=== PATIENT | male | born 1970 | race African-American/Black ===

== ENCOUNTER 2020-02-09 11:30 | Inpatient (IN) | payer MEDICAID, SELFPAY ==
[2020-02-09] VITALS (23 sets, daily range): BP systolic 134–188; BP diastolic 89–126; PULSE 71–98; RESP 18–39; TEMP 36.9–37.1; O2SAT 68–96
--- NOTE | ~2020-02-09 | US_ITS ---
EXAMINATION: US venous doppler [facility] DATE: 02/09/2020 18:02 INDICATION: Shortness of breath. Elevated d-dimer. TECHNIQUE: Grayscale ultrasound images without and with compression and Doppler ultrasound images of the bilateral lower extremity veins were obtained. COMPARISON: None. FINDINGS: The visualized portions of right common femoral vein, profunda (deep) femoral vein, femoral vein, pop liteal vein, posterior tibial veins, peroneal veins, gastrocnemius vein and greater saphenous vein ou tflow are patent. The visualized portions of left common femoral vein, profunda femoral vein, femoral vein, popliteal v ein, posterior tibial veins, peroneal veins, gastrocnemius vein and greater saphenous vein outflow ar e patent. IMPRESSION: 1. No deep venous thrombosis in either lower limb. Reviewed, dictated and finalized at location A.
--- NOTE | ~2020-02-09 | XR_ITS ---
EXAMINATION: XR chest 1V portable EXAM DATE: 02/14/2020 05:46 INDICATION: Pneumonia. COVID 19 TECHNIQUE: Portable AP frontal chest x-ray was obtained. Comparison is made to prior examination from 02/13/2020. FINDINGS: Again there is rather extensive bilateral acute airspace disease with air bronchograms, wit hout interval improvement. Could be acute lung injury given history provided. Cardiomediastinal silho uette is normal. There is no pneumothorax suspected. There are no pleural effusions. There are no oss eous abnormalities identified. IMPRESSION: Persistent extensive bilateral acute airspace disease. Reviewed, dictated and finalized at location A.
--- NOTE | ~2020-02-09 | XR_ITS ---
XR chest 1V portable 02/09/2020 11:51 Indication: Shortness of breath Procedure: AP portable chest Comparison: No prior studies for comparison. Findings: Cardiomegaly. Bilateral airspace disease is present with more focal consolidation in the le ft lower lobe. No pleural effusion or pneumothorax. Impression: 1: Bilateral airspace disease may reflect edema or pneumonia. 2: Cardiomegaly. Reviewed, dictated and finalized at location A. Impression: 1: Bilateral airspace disease may reflect edema or pneumonia. 2: Cardiomegaly.
--- NOTE | ~2020-02-09 | XR_ITS ---
EXAMINATION: XR chest 1V portable INDICATION: Pneumonia and shortness of breath TECHNIQUE: Portable AP chest at 1250 hours COMPARISON: 02/09/2020 FINDINGS: There is diffuse lung disease with interval worsening on the right. The heart size is aria l for technique. There is no pleural effusion or pneumothorax. IMPRESSION: 1. Diffuse lung disease with interval worsening on the right, consistent with worsening pneumonia. Reviewed, dictated and finalized at location A. IMPRESSION: 1. Diffuse lung disease with interval worsening on the right, consistent with w orsening pneumonia.
--- NOTE | ~2020-02-09 | XR_ITS ---
EXAMINATION: XR abdomen NG/feed tube insert EXAM DATE: 02/15/2020 06:28 INDICATION: Orogastric tube placement. TECHNIQUE: Frontal projection(s) of the abdomen for interpretation. There is no prior study for mauricio parry. FINDINGS: Feeding tube is in position. There is nonobstructive upper abdominal bowel gas pattern. Ba silar groundglass density airspace disease with air bronchograms. IMPRESSION: Feeding tube in position. Reviewed, dictated and finalized at location A. IMPRESSION: Feeding tube in position.
--- NOTE | ~2020-02-09 | XR_ITS ---
EXAMINATION: XR chest ET placement EXAM DATE: 02/15/2020 06:26 INDICATION: Intubated. Respiratory failure. COVID 19. TECHNIQUE: Portable AP frontal chest x-ray was obtained. Comparison is made to prior examination from 02/14/2020. FINDINGS: Endotracheal tube tip is 6-7 centimeters above the anselmo (ideal range is between 2 to 5 cm ). Could be safely advanced 2 cm. There is a left subclavian line. There is a nasogastric tube seen with tip collimated off the study, but below the left hemidiaphragm. Extensive bilateral groundglass density airspace disease with some faint air bronchograms identified. There are no sizable pleural effusions. There is no pneumothorax suspected. The cardiomediastin al silhouette is prominent but magnified on this AP technique. The bones and soft tissues are unrem arkable. There is no significant interval change compared to prior exam. IMPRESSION: 1. Endotracheal tube could be safely advanced 2 cm. 2. Stable airspace disease and other findings as above. Vision radiologist phoned, discussed this case with clinician as per documentation in their report, w francisca was faxed and scanned into PACS with this exam. Reviewed, dictated and finalized at location A. IMPRESSION: 1. Endotracheal tube could be safely advanced 2 cm. 2. Stable airspace disease and other findings as above. Vision radiologist phoned, discussed this case with clinician as per documentat ion in their report, which was faxed and scanned into PACS with this exam.
--- NOTE | ~2020-02-09 | XR_ITS ---
EXAMINATION: XR chest ET placement EXAM DATE: 02/15/2020 10:27 INDICATION: Endotracheal tube placement. TECHNIQUE: Portable AP frontal chest x-ray was obtained. Comparison is made to prior examination from earlier same date. FINDINGS: Endotracheal tube tip is 7 centimeters above the anselmo (ideal range is between 2 to 5 cm). Could be safely advanced 3 cm. There is a left subclavian line. There is a nasogastric tube seen wi th tip and side-port overlying left upper quadrant, adequate. Extensive bilateral groundglass density airspace disease with some faint air bronchograms identified. There are no sizable pleural effusions. There is no pneumothorax suspected. The cardiomediastin al silhouette is prominent but magnified on this AP technique. The bones and soft tissues are unrem arkable. There is no significant interval change compared to prior exam. IMPRESSION: 1. Endotracheal tube could be safely advanced 3 cm. 2. Stable airspace disease and other findings as above. Reviewed, dictated and finalized at location A.
--- NOTE | ~2020-02-09 | XR_ITS ---
EXAMINATION: XR chest 1V portable DATE: 02/12/2020 05:45 INDICATION: COVID-19 pneumonia. TECHNIQUE: A single frontal view of the chest was obtained. COMPARISON: Chest single view 02/11/2020, chest CT 02/09/2020 FINDINGS: Again seen is elevation of right hemidiaphragm. There are hazy airspace opacities throughou t the lungs bilaterally. No pleural effusion or pneumothorax. The heart size is normal. IMPRESSION: 1. Diffuse lung disease with worsening in the upper lobes, consistent with pneumonia versus pulmonary edema. Reviewed, dictated and finalized at location A. IMPRESSION: 1. Diffuse lung disease with worsening in the upper lobes, consistent with pneu monia versus pulmonary edema.
--- NOTE | ~2020-02-09 | XR_ITS ---
EXAMINATION: XR chest 1V portable DATE: 02/13/2020 05:48 INDICATION: COVID-19 pneumonia. TECHNIQUE: A single frontal view of the chest was obtained. COMPARISON: Chest single view 02/12/2020 FINDINGS: There are hazy airspace opacities in all lung zones bilaterally. No pleural effusion or pne umothorax. The heart size is normal. IMPRESSION: 1. Stable diffuse lung disease, consistent with pneumonia versus pulmonary edema. Reviewed, dictated and finalized at location A. IMPRESSION: 1. Stable diffuse lung disease, consistent with pneumonia versus pulmonary patrick a.
--- NOTE | ~2020-02-09 | CT_ITS ---
EXAMINATION: CTA chest PE protocol DATE: 02/09/2020 18:13 INDICATION: Pneumonia. Hypoxia. Elevated d-dimer. TECHNIQUE: Computed tomography (CT) pulmonary angiogram of the chest was performed with 100 mL Omnipa que-350 intravenous contrast. Additional 3D reconstructions utilizing coronal maximum intensity proje ction (MIP) were performed. Automated exposure control and iterative reconstruction technique were em ployed. The dose-length product was 554.84 mGy-cm. COMPARISON: None FINDINGS: Excellent contrast opacification of the pulmonary arteries. There is mild streak artifact from dense contrast in the superior vena cava and right atrium. Minimal scattered respiratory motion artifact wh ich does not significantly limit evaluation. No pulmonary embolism. Groundglass opacities throughout both lungs, in places with centrilobular predominance and in other regions more confluent without ass ociated septal line thickening and would favor pneumonia over pulmonary edema. No pleural effusion. H eart size is normal. No pericardial effusion. Thoracic aorta is normal in caliber with no dissection. Mild likely reactive subcarinal lymphadenopathy. Visualized upper abdomen is unremarkable. Bones are unremarkable. IMPRESSION: 1. No pulmonary embolism. 2. Extensive bilateral pulmonary groundglass opacities concerning for pneumonia. Reviewed, dictated and finalized at location A. IMPRESSION: 1. No pulmonary embolism. 2. Extensive bilateral pulmonary groundglass opacities concerning for pneumonia .
--- NOTE | 2020-02-09 11:41 | ECG_ITS ---
Measurements Intervals [place] Rate: 98 P: 48 ME: 142 QRS: -5 QRSD: 87 T: 16 QT: 367 QTc: 470 Interpretive Statements SINUS RHYTHM VOLTAGE CRITERIA FOR LVH DELAYED PRECORDIAL R/S TRANSITION BORDERLINE T WAVE ABNORMALITY- INFERIOR LEADS BASELINE ARTIFACT- I, III, AVL, V2, V5 BORDERLINE ECG Electronically Signed On 02-09-2020 11:46:29 CDT by Sam Ray D.O.
[2020-02-09] MEDS: ONDANSETRON INJ 4 MG/2 ML VIAL (11:49)
--- NOTE | 2020-02-09 11:55 | ED.SOB ---
HPI - SOB/Dyspnea General Chief Complaint: Shortness of Breath/Dyspnea Stated Complaint: SOB History of Present Illness HPI Narrative: Cough, congestion, and SOB for about the past week. Fevers and more severe SOB today. Seen at urgent care prior to the ED and found to be febrile with O2 saturation of 80% on RA. In the low 90s on 15 L by NRB. No chest pain. He has no known medical history. He does not smoke. Related Data Allergies Allergy/AdvReac Type Severity Reaction Status Date / Time No Known Allergies Allergy Verified 02/09/20 11:48 Review of Systems Review of Systems: All systems reviewed & are unremarkable except as noted in HPI and below Constitutional: Constitutional: Reports fatigue and Reports fever(s) Eyes: Eyes: Denies no additional eye complaints ENT: Reports nasal congestion Cardiovascular: Cardiovascular: Denies chest pain Respiratory: Respiratory: Reports chest congestion, Reports cough and Reports dyspnea Gastrointestinal: Gastrointestinal: Denies nausea and Denies vomiting Genitourinary: Genitourinary: Denies dysuria Musculoskeletal: Musculoskeletal: Denies back pain Neurologic: Denies dizziness and Denies weakness PMFSH Social History Social History (Updated 02/09/20 @ 12:00 by Zheng Wellington MD) Smoking status: Never smoker Gender identity (if verbalized by the patient): Male Exam Const: General: alert and ill appearing acutely Nutritional Appearance: well nourished Orientation/consciousness: patient oriented x3 Other: Moderate distress HENMT: Other: NRB in place Resp: Effort & Inspection: tachypneic Auscultation: rhonchi Cardio: Rate: regular rate Rhythm: regular rhythm GI: GI Palp: Yes Soft to palpation and No Tenderness to palpation present (GI) Skin: General skin exam: normal color Extrem: General: normal to inspection Course Vital Signs Vital signs: Vital Signs Temperature 36.9 C 02/09/20 11:33 Pulse Rate 98 02/09/20 11:33 Respiratory Rate 27 H 02/09/20 11:33 Blood Pressure 146/104 H 02/09/20 11:33 Pulse Oximetry 84 L 02/09/20 11:33 Temperature 36.9 C 02/09/20 11:33 Pulse Rate 92 02/09/20 14:04 Respiratory Rate 38 H 02/09/20 14:04 Blood Pressure 142/97 H 02/09/20 14:01 Pulse Oximetry 84 L 02/09/20 14:04 MDM - SOB/Dyspnea MDM Narrative Medical decision making narrative: He has a history, labs and imaging highly concerning for COVID-19 infection. Case discussed with Dr. Saldana. He recommends continuing high flow nasal cannula and admission to the ICU as an IMU patient. He will see him if his condition worsens. Differential Diagnosis Differential diagnosis: Likely congestive heart failure, community acquired pneumonia, pulmonary embolism and other (COVID-19) Medical Records Attestation: I reviewed the patient's medical records. Lab Data Attestation: I reviewed the patient's lab results. Result diagrams: 02/09/20 11:43 02/09/20 11:43 Labs: Lab Results 02/09/20 02/09/20 02/09/20 Range/Units 11:43 11:43 11:43 WBC 13.9 H (4.5-10.0) K/mm3 RBC 5.34 (4.6-6.20) M/mm3 Hgb 14.9 (14.0-18.0) g/dL Hct 44.5 (42.0-52.0) % MCV 83.3 (80-100) fl MCH 27.9 (26-34) pg MCHC 33.5 (32-36) g/dl RDW 12.7 (11.5-14.5) % Plt Count 253 (150-375) k/mm3 MPV 10.5 H (7.4-10.4) fl Immature Gran % (Auto) 1.2 H (0-0.5) % Neut % (Auto) 89.3 H (45.5-73.1) % Lymph % (Auto) 5.5 L (18.3-44.2) % Milam % (Auto) 3.9 (2.6-8.5) % Eos % (Auto) 0.0 (0-4.4) % Baso % (Auto) 0.1 L (0.2-1.2) % Lymph # (Auto) 0.77 L (0.9-3.2) K/mm3 Milam # (Auto) 0.5 (0.1-0.6) K/mm3 Eos # (Auto) 0.0 (0-0.3) K/mm3 Baso # (Auto) 0.0 (0.0-0.1) K/mm3 Abs Immat Gran (auto) 0.17 H (0.00-0.031) K/mm3 Absolute Neuts (auto) 12.4 H (1.3-6.7) K/mm3 Absolute Nucleated RBC 0.0 (0.0-0.012) K/mm3 Nucleated RBC % 0.0 (0.0-0.2) % PT 12.7
[2020-02-09 11:59] LABS: Basophils Percent Auto 0.1 % (0.2-1.2); Hematocrit 44.5 % (42.0-52.0); Hemoglobin 14.9 g/dL (14.0-18.0); Immature Granulocyte Absolute 0.17 K/mm3 (0.00-0.031); Immature Granulocyte Percent A 1.2 % (0-0.5); Lymphocytes Absolute Auto 0.77 K/mm3 (0.9-3.2); Lymphocytes Percent Auto 5.5 % (18.3-44.2); Mean Corpuscular HGB Conc 33.5 g/dl (32-36); Mean Corpuscular Hemoglobin 27.9 pg (26-34); Mean Corpuscular Volume 83.3 fl (80-100); Mean Platelet Volume 10.5 fl (7.4-10.4); Monocytes Absolute Auto 0.5 K/mm3 (0.1-0.6); Monocytes Percent Auto 3.9 % (2.6-8.5); Neutrophils Absolute Auto 12.4 K/mm3 (1.3-6.7); Neutrophils Percent Auto 89.3 % (45.5-73.1); Platelet Count Result 253 k/mm3 (150-375); Red Blood Count 5.34 M/mm3 (4.6-6.20); Red Cell Distribution Width 12.7 % (11.5-14.5); White Blood Count 13.9 K/mm3 (4.5-10.0)
[2020-02-09 12:01] LABS: Alveolar/Arterial O2 Gradient 607.5 mmHg; Base Excess ABG 0.1 mEq/l (+/-2.0); Fractional Inspired Oxygen 100 %; HCO3 ABG 22.9 mEq/l (22.0-26.0); Oxygen Content ABG 20.5 %vol (16.0-22.0); Oxygen Saturation ABG 95.7 % (95.0-100.0); Oxyhemoglobin 93.5 % THb (90.0-100.0); PCO2 ABG 32.2 mmHg (35.0-45.0); PO2 ABG 73.3 mmHg (80.0-100.0); PO2 FiO2 Ratio Arterial Blood 0.73 %; Total Hemoglobin 15.6 g/dL (12.0-18.0); pH ABG 7.469 (7.350-7.450)
[2020-02-09 12:02] LABS: Device NON-REBREATHER MASK; Site Drawn RIGHT BRACHIAL
[2020-02-09 12:11] LABS: Lactic Acid Reflex 2.2 mmol/L (0.7-2.1)
[2020-02-09 12:12] LABS: Prothrombin Time 12.7 Seconds (11.1-14.7)
[2020-02-09 12:15] LABS: Alanine Aminotransferase 44 U/L (4-50); Albumin Level 3.9 g/dL (3.5-5.1); Alkaline Phosphatase 71 U/L (38-126); Aspartate Amino Transferase 54 U/L (17-59); Bilirubin,Total 0.9 mg/dL (0.2-1.3); Blood Urea Nitrogen 19 mg/dL (9-20); Calcium 8.3 mg/dL (8.4-10.2); Carbon Dioxide 25 mmol/L (22-30); Chloride 107 mmol/L (98-107); Estimated CRCL calculation 93 ml/min; Estimated Glomerular Filt Rate > 60; Glucose 127 mg/dL (75-110); Potassium 3.6 mmol/L (3.4-5.0); Sodium 139 mmol/L (137-145)
[2020-02-09 12:16] LABS: D Dimer 0.86 ug/mL (<0.48)
[2020-02-09 12:31] LABS: NT Pro B Type Natriuretic Pept 504 PG/ML (5-100); Troponin I 0.026 ng/mL (0.000-0.034)
[2020-02-09 12:32] LABS: CRP 16.7 mg/dL (<1.0)
--- NOTE | 2020-02-09 13:20 | PC.NURSE ---
Pt states he does not feel as though his breathing has gotten any more difficult since switching to high flow nasal canula. Pt resting with eyes closed.
[2020-02-09] MEDS: ALBUTEROL SULFATE (*SP) AEROSOL 1 PUFF 2 PUFF INHALATION (13:35)
[2020-02-09 14:32] LABS: Lactate Dehydrogenase 1174 U/L (313-618)
[2020-02-09 14:56] LABS: Reflex Lactic Acid Yes or No Add Lactic
--- NOTE | 2020-02-09 15:51 | ADMGEN ---
This patient, Josette Nguyen, was admitted to Intensive Care Unit-5. Patient/family oriented to hospital policies and general routines including ID bracelet, bed and alarms, visiting hours, pain management, procedures, bathroom and other care routines, personal items, smoking policy, room service/diet, and visiting hours. Valuables list has been completed. Information on how to activate the Rapid Response Team has been discussed. Patient/Family are encouraged to report perceived risks to care and to ask questions if they do not understand what they are told or what they should do.
--- NOTE | 2020-02-09 15:54 | PM.IMHP ---
H&P: HPI History of Present Illness Chief complaint: Acute respiratory failure with hypoxia/pneumonia Narrative: Josette Nguyen is a 49 year old male has no past medical history. The patient stated that a week ago he started to feel like he had the flu. The patient stated that he did have some chills but did not check his temperature he did not think that had a fever. He had a some nausea as well. He took some Tamiflu but that really did seem to help. 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 The patient states that he typically wears a mask when he picks sees people up. His fiancee is a nurse. Patient has had cough congestion and shortness of breath for the last week. The patient went to urgent care prior to the emergency room and was found to be afebrile with oxygen level of 80% on room air. Patient also had loss of appetite. Patient does not smoke or have any past medical history. The patient was tested for covid 19. He was placed on high-flow oxygen at 10 L per nasal cannula and satting in the lower 90s. Patient was positive for influenza a and B. his white count is up to 13.9. D-dimer was noted to be 0.86. LDH 1174. C reactive protein 16.7. BNP is 504. Was read as BiPAP bilateral airspace disease may reflect edema or pneumonia. Cardiomegaly. Patient was started on aZithromax and Rocephin. He was given a 1 time dose of albuterol HFA. Review of Systems Review of Systems: All systems reviewed & are unremarkable except as noted in HPI and below Constitutional: Constitutional: Reports as per HPI and Reports no additional constitutional complaints Eyes: Eyes: Reports as per HPI and Reports no additional eye complaints ENT: Reports system reviewed and no additional complaints, except as documented and Reports Normal hearing present Cardiovascular: Cardiovascular: Reports no additional cardiovascular complaints Respiratory: Respiratory: Reports no additional respiratory complaints and Reports no additional respiratory complaints Gastrointestinal: Gastrointestinal: Reports as per HPI and Reports no additional gastrointestinal complaints Musculoskeletal: Musculoskeletal: Reports no additional musculoskeletal complaints Integumentary/Breasts: Skin/Breast: Reports system reviewed and no additional complaints, except as docu and Reports as per HPI Neurologic: Reports system reviewed and no additional complaints, except as documented, Reports as per HPI and Reports Normal hearing present Psychiatric: Psychiatric: Reports no additional psychiatric complaints and Reports as per HPI Endocrine: Endocrine: Reports no additional endocrine complaints Hematologic/Lymphatic: Hematologic/Lymphatic: Reports no additional hematologic/lymphatic complaints Allergic/Immunologic: Allergic/Immunologic: Reports no additional allergic/immunologic complaints [facility] Past Medical History Medical History (Updated 02/09/20 @ 16:15 by Reina Valverde NP) No significant medical problems Surgical History Surgical History (Updated 02/09/20 @ 16:05 by Reina Valverde NP) H/O arthroscopic knee surgery Right knee Family History Family History (Updated 02/09/20 @ 16:05 by Reina Valverde NP) Father Hypertension Social History Social History (Updated 02/09/20 @ 16:09 by Reina Valverde NP) Social History: Patient works for [employer]. He has a fiancee. He has 3 children. He is a lifelong nonsmoker. Smoking status: Never smoker Second hand tobacco smoke exposure: No Alcohol intake: never Substance use: never Occupation/Education: occupation Gender identity (if verbalized by the patient): Male Spiritual care concerns: No Agree to blood products: Yes Meds Home Medications and Allergies Allergies Allergy/AdvReac Type Severity Reaction Status Date / Time No Known Allergies Allergy Verified 02/09/20 11:48 Vital Signs Vital Signs - 24 hr
[2020-02-09 19:02] LABS: Lactic Acid 1.6 mmol/L (0.7-2.1)
[2020-02-09] MEDS: hydrALAZINE HCL 20 MG/ML VIAL 10 MG IV PUSH (21:28)
[2020-02-10] VITALS (16 sets, daily range): BP systolic 103–151; BP diastolic 54–102; PULSE 64–83; RESP 20–41; TEMP 36.8–37.8; O2SAT 88–100
[2020-02-10 04:56] LABS: Basophils Percent Auto 0.1 % (0.2-1.2); Hematocrit 42.4 % (42.0-52.0); Hemoglobin 14.2 g/dL (14.0-18.0); Immature Granulocyte Percent A 0.9 % (0-0.5); Lymphocytes Absolute Auto 1.28 K/mm3 (0.9-3.2); Mean Corpuscular HGB Conc 33.5 g/dl (32-36); Mean Corpuscular Hemoglobin 27.8 pg (26-34); Mean Corpuscular Volume 83.1 fl (80-100); Mean Platelet Volume 9.9 fl (7.4-10.4); Monocytes Absolute Auto 0.6 K/mm3 (0.1-0.6); Monocytes Percent Auto 5.5 % (2.6-8.5); Neutrophils Absolute Auto 8.7 K/mm3 (1.3-6.7); Neutrophils Percent Auto 81.5 % (45.5-73.1); Platelet Count Result 262 k/mm3 (150-375); Red Cell Distribution Width 13.1 % (11.5-14.5); White Blood Count 10.7 K/mm3 (4.5-10.0)
[2020-02-10 05:14] LABS: Alanine Aminotransferase 49 U/L (4-50); Albumin Level 3.4 g/dL (3.5-5.1); Alkaline Phosphatase 61 U/L (38-126); Aspartate Amino Transferase 52 U/L (17-59); Bilirubin,Total 0.8 mg/dL (0.2-1.3); Blood Urea Nitrogen 21 mg/dL (9-20); Calcium 8.3 mg/dL (8.4-10.2); Carbon Dioxide 28 mmol/L (22-30); Chloride 104 mmol/L (98-107); Estimated CRCL calculation 103 ml/min; Estimated Glomerular Filt Rate > 60; Glucose 110 mg/dL (75-110); Magnesium 2.7 mg/dL (1.6-2.3); Potassium 3.6 mmol/L (3.4-5.0); Sodium 138 mmol/L (137-145)
[2020-02-10 15:05] LABS: Alveolar/Arterial O2 Gradient 454.2 mmHg; Carboxyhemoglobin 0.3 % THb (0-2.0); Fractional Inspired Oxygen 80 %; Methemoglobin ABG 0.4 %THb (0-1.5); Oxygen Content ABG 18.6 %vol (16.0-22.0); Oxygen Saturation ABG 94.3 % (95.0-100.0); Oxyhemoglobin 92.3 % THb (90.0-100.0); PO2 FiO2 Ratio Arterial Blood 0.88 %; Total Hemoglobin 14.3 g/dL (12.0-18.0); pH ABG 7.421 (7.350-7.450)
[2020-02-10 15:06] LABS: Device HIGH FLOW THERAPY; Modified Allen's Test Pass; Site Drawn RIGHT RADIAL
[2020-02-10 15:57] LABS: SARS-CoV-2 RNA PCR Positive
--- NOTE | 2020-02-10 18:01 | PM.IMPN ---
Progress Note: A&P Assessment and Plan (1) Acute respiratory failure with hypoxia: Code(s): J96.01 - Acute respiratory failure with hypoxia Status: Acute Assessment and Plan: Patient was tested for covid 19. All of his markers and chest x-ray are concerning for covid 19. Continue with Korey there mycin and Rocephin. Patient's influenza was negative. His CRP his greatly elevated as well as his LDH. May consider Plaquenil if patient comes back positive for covid 19. Or in the event that the patient's condition worsens. Patient is on high-flow nasal cannula at this time. We had a long discussion and if he worsens the patient will allow intubation MV placed on a ventilator. He desires to be a full code. 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 02/10/20 18:01 Patient is a 49 year male had been coughing and shortness of breath for 1 week was sent to emergency department with fever and chills he had been desatting in the room male, currently he is on high-flow oxygen in appear to be tachypneic, we did the ABG which are close to normal I did discussed with oil heater installer will continue to monitor the patient, I also spoke with controlled area checker nurse practitioner will closely monitor for any distress (2) Pneumonia: Qualifiers: Laterality: bilateral Lung location: unspecified part of lung Pneumonia type: due to unspecified organism Qualified Code(s): J18.9 - Pneumonia, unspecified organism Code(s): J18.9 - Pneumonia, unspecified organism Status: Acute Assessment and Plan: P.r.n. albuterol inhaler. Continue with azithromycin Rocephin. Are pending. I will order sputum specimens as well. Patient chest x-ray is diagnostic COVID-19 will continue to monitor (3) Elevated BP without diagnosis of hypertension: Code(s): R03.0 - Elevated blood-pressure reading, without diagnosis of hypertension Status: Acute Assessment and Plan: Patient has no prior history of having high blood pressure. However today it is elevated we will do p.r.n. hydralazine for now. Subjective Date/time seen: 02/10/20 18:01 Patient is a 49 year male had been coughing and shortness of breath for 1 week was sent to emergency department with fever and chills he had been desatting in the room male, currently he is on high-flow oxygen in appear to be tachypneic, we did the ABG which are close to normal I did discussed with oil heater installer will continue to monitor the patient, I also spoke with controlled area checker nurse practitioner will closely monitor for any distress Review of Systems Review of Systems: ROS unobtainable: Yes unobtainable due to medical condition Exam Const: General: uncomfortable HENMT: General nose exam: Normal nares present Mouth: Yes moist mucous membranes Eyes: General: appearance normal, both eyes and all related structures Sclera: sclerae normal Neck: Neck: supple Resp: Other: Bilateral poor air entry with harsh breath sound Cardio: Rate: regular rate Rhythm: regular rhythm GI: Auscultation: normal bowel sounds Skin: General skin exam: normal color Neuro: Other: Is on high-flow oxygen Extrem: General: normal to inspection Psych: Affect: Anxious affect present Other: Patient on high-flow oxygen Objective Data Vital Signs Vital Signs: Vital Signs - 24 hr 02/09/20 19:15 02/09/20 20:00 02/09/20 22:00 Temperature 98.7 F Pulse Rate 71 78 Respiratory Rate Blood Pressure 188/126 H Pulse Oximetry 91 92 02/09/20 22:10 02/09/20 22:43 02/10/20 00:00 Temperature 99.7 F H Pulse Rate 80 75 81 Respiratory Rate 32 H 38 H 37 H Blood Pressure 134/89 122/85 Pulse Oximetry 92 91 94 02/10/20 02:00 02/10/20 04:00 02/10/20 06:00 Temperature 99.4 F Pulse Rate 69 70 69 Respiratory Rate 41 H Blood Pressure 109/76 Pulse Oximetry 90 02/10/20 08:00 02/10/20 08:15 02/10/20 10:00 Temperature 98.3 F Pulse Rate 67 83 Respiratory Rate 20
[2020-02-11] VITALS (17 sets, daily range): BP systolic 99–149; BP diastolic 64–93; PULSE 67–94; RESP 20–38; TEMP 36.2–38; O2SAT 92–98
[2020-02-11 08:33] LABS: Procalcitonin 0.25 ng/mL (<0.10)
--- NOTE | 2020-02-11 17:22 | PM.IMPN ---
Progress Note: A&P Assessment and Plan (1) Acute respiratory failure with hypoxia: Code(s): J96.01 - Acute respiratory failure with hypoxia Status: Acute Assessment and Plan: Patient was tested for covid 19. All of his markers and chest x-ray are concerning for covid 19. Continue with Korey there mycin and Rocephin. Patient's influenza was negative. His CRP his greatly elevated as well as his LDH. May consider Plaquenil if patient comes back positive for covid 19. Or in the event that the patient's condition worsens. Patient is on high-flow nasal cannula at this time. We had a long discussion and if he worsens the patient will allow intubation MV placed on a ventilator. He desires to be a full code. He does not have a power mechanical press operator. 02/11/20 17:22 Patient is a 49 year male had been coughing and shortness of breath for 1 week was sent to emergency department with fever and chills he had been desatting in the room air, Patient is COVID-19 positive, on 02/09 he was on high-flow oxygen in appear to be tachypneic, we did the ABG which are close to normal I did discussed with furniture stainer plan is continue to monitor the patient, I also spoke with warp drawer nurse practitioner will closely monitor for any distress, Ms Valverde and Dr. Orozco also examined the patient last night and plan is monitor patient closely, this morning patient is clinically stable, however his chest x-ray is showing worsening pneumonia and requiring high flow oxygen, discuss with Dr. Nicole will start patient on hydroxychloroquine, per protocol, will stop zithromycin, monitor QT interval, will start on Doxycycline, will continue to monitor and if need patient may need to be placed on ventilator. (2) Pneumonia: Qualifiers: Laterality: bilateral Lung location: unspecified part of lung Pneumonia type: due to unspecified organism Qualified Code(s): J18.9 - Pneumonia, unspecified organism Code(s): J18.9 - Pneumonia, unspecified organism Status: Acute Assessment and Plan: P.r.n. albuterol inhaler. Continue with azithromycin Rocephin. Are pending. I will order sputum specimens as well. Patient chest x-ray is diagnostic COVID-19, repeat chest x-ray shows worsening pneumonia plan is above (3) Elevated BP without diagnosis of hypertension: Code(s): R03.0 - Elevated blood-pressure reading, without diagnosis of hypertension Status: Acute Assessment and Plan: Patient has no prior history of having high blood pressure. However today it is elevated we will do p.r.n. hydralazine for now. Subjective Date/time seen: 02/11/20 17:22 Patient is a 49 year male had been coughing and shortness of breath for 1 week was sent to emergency department with fever and chills he had been desatting in the room air, Patient is COVID-19 positive, on 02/09 he was on high-flow oxygen in appear to be tachypneic, we did the ABG which are close to normal I did discussed with furniture stainer plan is continue to monitor the patient, I also spoke with warp drawer nurse practitioner will closely monitor for any distress, Ms Valverde and Dr. Orozco also examined the patient last night and plan is monitor patient closely, this morning patient is clinically stable, however his chest x-ray is showing worsening pneumonia and requiring high flow oxygen, discuss with Dr. Nicole will start patient on hydroxychloroquine, per protocol, will stop zithromycin, monitor QT interval, will start on Doxycycline, will continue to monitor and if need patient may need to be placed on ventilator. Review of Systems Review of Systems: ROS unobtainable: Yes unobtainable due to medical condition Exam Const: General: no acute distress and uncomfortable HENMT: General nose exam: Normal nares present Neck: Other: No retaction Resp: Other: patient was not auscaltated droplet isolation Skin: General skin exam: normal color Extrem: Genera
[2020-02-11] MEDS: HYDROXYCHLOROQUINE SULFATE 200 MG TABLET 400 MG PO (18:33)
[2020-02-12] VITALS (18 sets, daily range): BP systolic 117–156; BP diastolic 67–98; PULSE 78–93; RESP 18–34; TEMP 37.3–38.4; O2SAT 90–100
[2020-02-12 05:39] LABS: Basophils Percent Auto 0.3 % (0.2-1.2); Eosinophils Percent Auto 0.3 % (0-4.4); Hematocrit 39.1 % (42.0-52.0); Hemoglobin 13.2 g/dL (14.0-18.0); Immature Granulocyte Absolute 0.28 K/mm3 (0.00-0.031); Immature Granulocyte Percent A 2.2 % (0-0.5); Lymphocytes Absolute Auto 1.18 K/mm3 (0.9-3.2); Lymphocytes Percent Auto 9.3 % (18.3-44.2); Mean Corpuscular HGB Conc 33.8 g/dl (32-36); Mean Corpuscular Hemoglobin 28.1 pg (26-34); Mean Corpuscular Volume 83.2 fl (80-100); Mean Platelet Volume 9.6 fl (7.4-10.4); Monocytes Absolute Auto 0.7 K/mm3 (0.1-0.6); Monocytes Percent Auto 5.2 % (2.6-8.5); Neutrophils Absolute Auto 10.5 K/mm3 (1.3-6.7); Neutrophils Percent Auto 82.7 % (45.5-73.1); Platelet Count Result 272 k/mm3 (150-375); Red Cell Distribution Width 12.8 % (11.5-14.5); White Blood Count 12.7 K/mm3 (4.5-10.0)
[2020-02-12 05:50] LABS: Alanine Aminotransferase 70 U/L (4-50); Albumin Level 3.2 g/dL (3.5-5.1); Alkaline Phosphatase 78 U/L (38-126); Aspartate Amino Transferase 46 U/L (17-59); Blood Urea Nitrogen 15 mg/dL (9-20); Calcium 7.8 mg/dL (8.4-10.2); Carbon Dioxide 27 mmol/L (22-30); Chloride 102 mmol/L (98-107); Estimated CRCL calculation 115 ml/min; Estimated Glomerular Filt Rate > 60; Glucose 116 mg/dL (75-110); Lactate Dehydrogenase 1535 U/L (313-618); Potassium 3.5 mmol/L (3.4-5.0); Sodium 134 mmol/L (137-145)
[2020-02-12 06:26] LABS: D Dimer > 20.00 ug/mL (<0.48)
[2020-02-12] MEDS: HYDROXYCHLOROQUINE SULFATE 200 MG TABLET 400 MG PO (09:06)
[2020-02-12] MEDS: ENOXAPARIN 100 MG/ML SYRINGE SUB-Q (11:55)
--- NOTE | 2020-02-12 16:40 | PM.IMPN ---
Progress Note: A&P Assessment and Plan (1) Acute respiratory failure with hypoxia: Code(s): J96.01 - Acute respiratory failure with hypoxia Status: Acute Assessment and Plan: 02/12/20 16:40 Patient was tested for covid 19. All of his markers and chest x-ray are concerning for covid 19. Continue with Korey there mycin and Rocephin. Patient's influenza was negative. His CRP his greatly elevated as well as his LDH. May consider Plaquenil if patient comes back positive for covid 19. Or in the event that the patient's condition worsens. Patient is on high-flow nasal cannula at this time. We had a long discussion and if he worsens the patient will allow intubation MV placed on a ventilator. He desires to be a full code. He does not have a power equalizer operator. Patient is a 49 year male had been coughing and shortness of breath for 1 week was sent to emergency department with fever and chills he had been desatting in the room air, Patient is COVID-19 positive, on 02/09 he was on high-flow oxygen in appear to be tachypneic, we did the ABG which are close to normal I did discussed with pari mutuel ticket cashier plan is continue to monitor the patient, I also spoke with coffee maker nurse practitioner will closely monitor for any distress, Ms Valverde and Dr. Orozco also examined the patient last night and plan is monitor patient closely, on 02/10 morning patient was clinically stable, however his chest x-ray was showing worsening pneumonia and requiring high flow oxygen, discuss with Dr. Nicole started patient on hydroxychloroquine, per protocol with help of our pharmacist, stopped zithromycin, monitoring QT interval, started on Doxycycline, today there is slight increase in white count, absolute lymphs normal, his LDH is increasing his, his chest x-ray today shows worsening pneumonia procalcitonin is positive, his D-dimer is elevated started patient on Lovenox 1 mg per kg q.day, patient appears clinically stable he is talking of on phone, he appear stable no distress, he does get tachypneic with movement. Will continue present management will monitor, repeat chest x-ray tomorrow (2) Pneumonia: Qualifiers: Laterality: bilateral Lung location: unspecified part of lung Pneumonia type: due to unspecified organism Qualified Code(s): J18.9 - Pneumonia, unspecified organism Code(s): J18.9 - Pneumonia, unspecified organism Status: Acute Assessment and Plan: P.r.n. albuterol inhaler. Continue with azithromycin Rocephin. Are pending. I will order sputum specimens as well. Patient chest x-ray is diagnostic COVID-19, repeat chest x-ray shows worsening pneumonia plan is above (3) Elevated BP without diagnosis of hypertension: Code(s): R03.0 - Elevated blood-pressure reading, without diagnosis of hypertension Status: Acute Assessment and Plan: Patient has no prior history of having high blood pressure. However today it is elevated we will do p.r.n. hydralazine for now. Subjective Date/time seen: 02/12/20 16:40 Patient was tested for covid 19. All of his markers and chest x-ray are concerning for covid 19. Continue with Korey there mycin and Rocephin. Patient's influenza was negative. His CRP his greatly elevated as well as his LDH. May consider Plaquenil if patient comes back positive for covid 19. Or in the event that the patient's condition worsens. Patient is on high-flow nasal cannula at this time. We had a long discussion and if he worsens the patient will allow intubation MV placed on a ventilator. He desires to be a full code. He does not have a power equalizer operator. Patient is a 49 year male had been coughing and shortness of breath for 1 week was sent to emergency department with fever and chills he had been desatting in the room air, Patient is COVID-19 positive, on 02/09 he was on high-flow oxygen in appear to be tachypneic, we did the ABG which are close to normal I did discussed
[2020-02-12] MEDS: HYDROXYCHLOROQUINE SULFATE 200 MG TABLET PO (17:31)
[2020-02-12] MEDS: ACETAMINOPHEN 500 MG TABLET 1000 MG PO (20:50)
[2020-02-13] VITALS (14 sets, daily range): BP systolic 116–146; BP diastolic 64–104; PULSE 64–112; RESP 18–34; TEMP 36.6–37.6; O2SAT 90–100
[2020-02-13] MEDS: ACETAMINOPHEN 500 MG TABLET 1000 MG PO (05:37)
[2020-02-13 05:53] LABS: Basophils Percent Auto 0.2 % (0.2-1.2); Eosinophils Absolute Auto 0.1 K/mm3 (0-0.3); Eosinophils Percent Auto 0.4 % (0-4.4); Hematocrit 38.5 % (42.0-52.0); Hemoglobin 12.7 g/dL (14.0-18.0); Immature Granulocyte Absolute 0.41 K/mm3 (0.00-0.031); Immature Granulocyte Percent A 2.7 % (0-0.5); Lymphocytes Absolute Auto 1.06 K/mm3 (0.9-3.2); Mean Corpuscular Hemoglobin 27.7 pg (26-34); Mean Corpuscular Volume 84.1 fl (80-100); Mean Platelet Volume 9.6 fl (7.4-10.4); Monocytes Absolute Auto 0.6 K/mm3 (0.1-0.6); Monocytes Percent Auto 4.2 % (2.6-8.5); Neutrophils Percent Auto 85.5 % (45.5-73.1); Platelet Count Result 254 k/mm3 (150-375); Red Blood Count 4.58 M/mm3 (4.6-6.20); Red Cell Distribution Width 13.2 % (11.5-14.5); White Blood Count 15.2 K/mm3 (4.5-10.0)
[2020-02-13 06:07] LABS: Alanine Aminotransferase 50 U/L (4-50); Albumin Level 3.1 g/dL (3.5-5.1); Alkaline Phosphatase 85 U/L (38-126); Aspartate Amino Transferase 40 U/L (17-59); Blood Urea Nitrogen 16 mg/dL (9-20); Calcium 7.7 mg/dL (8.4-10.2); Carbon Dioxide 31 mmol/L (22-30); Chloride 99 mmol/L (98-107); Estimated CRCL calculation 93 ml/min; Estimated Glomerular Filt Rate > 60; Glucose 112 mg/dL (75-110); Potassium 3.4 mmol/L (3.4-5.0); Sodium 135 mmol/L (137-145)
[2020-02-13] MEDS: POTASSIUM CHLORIDE 20 MEQ TABLET 40 MEQ PO (08:27)
[2020-02-13] MEDS: HYDROXYCHLOROQUINE SULFATE 200 MG TABLET PO ×2 (08:27→17:01)
--- NOTE | 2020-02-13 08:54 | ECG_ITS ---
Measurements Intervals [place] Rate: 90 P: 48 CO: 148 QRS: 3 QRSD: 94 T: 21 QT: 386 QTc: 474 Interpretive Statements SINUS RHYTHM DELAYED PRECORDIAL R/S TRANSITION BORDERLINE T WAVE ABNORMALITY- ANT/INF LEADS BASELINE ARTIFACT- AVL, AVF, V6 BORDERLINE ECG Electronically Signed On 02-13-2020 10:57:19 CDT by Sam Ray D.O.
[2020-02-13] MEDS: ENOXAPARIN 100 MG/ML SYRINGE SUB-Q (09:53)
--- NOTE | 2020-02-13 15:17 | PM.IMPN ---
Progress Note: A&P Assessment and Plan (1) Acute respiratory failure with hypoxia: Code(s): J96.01 - Acute respiratory failure with hypoxia Status: Acute Assessment and Plan: 02/13/20 15:17 Patient was tested for covid 19. All of his markers and chest x-ray were concerning for covid 19. Continue with Korey there mycin and Rocephin. Patient's influenza was negative. His CRP his greatly elevated as well as his LDH. May consider Plaquenil if patient comes back positive for covid 19. Or in the event that the patient's condition worsens. Patient is on high-flow nasal cannula at this time. We had a long discussion and if he worsens the patient will allow intubation MV placed on a ventilator. He desires to be a full code. He does not have a power insurance attorney. Patient is a 49 year male had been coughing and shortness of breath for 1 week was sent to emergency department with fever and chills he had been desatting in the room air, Patient is COVID-19 positive, on 02/09 he was on high-flow oxygen in appear to be tachypneic, we did the ABG which are close to normal I did discussed with industrial roofer helper plan is continue to monitor the patient, I also spoke with steel rule die maker apprentice nurse practitioner will closely monitor for any distress, Ms Valverde and Dr. Orozco also examined the patient last night and plan is monitor patient closely, on 02/10 morning patient was clinically stable, however his chest x-ray was showing worsening pneumonia and requiring high flow oxygen, discuss with Dr. Nicole started patient on hydroxychloroquine, per protocol with help of our pharmacist, stopped zithromycin, monitoring QT interval, started on Doxycycline, repeat EKG on 02/12 did not show any change in QT interval, today there is slight increase in white count, absolute lymphs normal, his LDH is increasing his, his chest x-ray today shows worsening pneumonia procalcitonin is positive, his D-dimer is elevated started patient on Lovenox 1 mg per kg q.day, While standing outside his room I called his cell phone [phone] and spoke with the patient he can see me outside his, still complaints of shortness of breath but he stats feels better than when he arrived, Patient is now requring 85% FIO2 his RR is 31 for 3 days I was concerned that patient may crash and will have to be emergently intuabted discuss with Dr. Barr wardrobe custodian and Dr. Nicole, patient is now will be seen by Dr. Nicole along with the hospitalist, further work up is in progress. (2) Pneumonia: Qualifiers: Laterality: bilateral Lung location: unspecified part of lung Pneumonia type: due to unspecified organism Qualified Code(s): J18.9 - Pneumonia, unspecified organism Code(s): J18.9 - Pneumonia, unspecified organism Status: Acute Assessment and Plan: P.r.n. albuterol inhaler. Continue with azithromycin Rocephin. Are pending. I will order sputum specimens as well. Patient chest x-ray is diagnostic COVID-19, repeat chest x-ray shows worsening pneumonia plan is above (3) Elevated BP without diagnosis of hypertension: Code(s): R03.0 - Elevated blood-pressure reading, without diagnosis of hypertension Status: Acute Assessment and Plan: Patient has no prior history of having high blood pressure. However today it is elevated we will do p.r.n. hydralazine for now. Subjective Date/time seen: 02/13/20 15:17 Patient was tested for covid 19. All of his markers and chest x-ray were concerning for covid 19. Continue with Korey there mycin and Rocephin. Patient's influenza was negative. His CRP his greatly elevated as well as his LDH. May consider Plaquenil if patient comes back positive for covid 19. Or in the event that the patient's condition worsens. Patient is on high-flow nasal cannula at this time. We had a long discussion and if he worsens the patient will allow intubation MV placed on a ventilator. He desires to be a full code. He does not
--- NOTE | 2020-02-13 16:22 | PM.CNPUL ---
Assessment and Plan Assessment and plan (1) Acute hypoxemic respiratory failure: Code(s): J96.01 - Acute respiratory failure with hypoxia Status: Acute Assessment and Plan: Seems to be doing ok right now but he is very close to need needing intubation and mechanical ventolation. - consider early intubation to avoid errors in safety and droplet precautions protocols as well as avoiding patient complications. - agree with proning and will need low tidal volume strategy (2) COVID-19 virus detected: Code(s): U07.1 - COVID-19 Status: Acute Additional Plan Will leave to Implementation Specialist Payroll if and what type of expirmental medications can be considered. History of Present Illness History of Present Illness Consult date: 02/13/20 Chief complaint: Acute respiratory failure with hypoxia/pneumonia Narrative: 49 y/o male who's previous healthy admitted with dyspnea, non productive cough which started about 12 days ago is in hypoxemic respiratory failure and is in the ICU on near full dose of high flow oxygen plus face mask. He says he's not feeling any better than when coming. Proning position helps sometimes. He's able to speak in full sentences but RR is around 25. He tested positive for SARS-CoV-2. His CXR from 02/12 looks worse than from 02/08. Review of Systems Review of Systems: All systems reviewed & are unremarkable except as noted in HPI and below PMFSH Past Medical History Medical History (Updated 02/13/20 @ 16:30 by Loren Kramer MD) No significant medical problems Surgical History Surgical History (Updated 02/09/20 @ 16:05 by Reina Valverde NP) H/O arthroscopic knee surgery Right knee Family History Family History (Updated 02/09/20 @ 16:05 by Reina Valverde NP) Father Hypertension Social History Social History (Updated 02/09/20 @ 16:09 by Reina Valverde NP) Social History: Patient works for [employer]. He has a fiancee. He has 3 children. He is a lifelong nonsmoker. Smoking status: Never smoker Second hand tobacco smoke exposure: No Alcohol intake: never Substance use: never Occupation/Education: occupation Gender identity (if verbalized by the patient): Male Spiritual care concerns: No Agree to blood products: Yes Meds Home Medications and Allergies Home Medications Medication Instructions Recorded Confirmed Type No Home Medications 02/10/20 02/10/20 History Allergies Allergy/AdvReac Type Severity Reaction Status Date / Time No Known Allergies Allergy Verified 02/09/20 11:48 Vital Signs Vital Signs - 24 hr 02/12/20 18:00 02/12/20 20:00 02/12/20 20:50 Temperature 38.4 C H 38.4 C H Pulse Rate 89 93 Respiratory Rate 28 H Blood Pressure 117/67 Pulse Oximetry 99 02/12/20 21:12 02/12/20 22:00 02/12/20 22:06 Temperature 37.7 C H Pulse Rate 85 84 Respiratory Rate 18 Blood Pressure Pulse Oximetry 95 02/13/20 00:00 02/13/20 02:00 02/13/20 04:00 Temperature 37.5 C 37.6 C Pulse Rate 71 80 76 Respiratory Rate 28 H 22 H Blood Pressure 116/79 126/78 Pulse Oximetry 96 97 02/13/20 06:00 02/13/20 08:00 02/13/20 10:00 Temperature 36.6 C Pulse Rate 86 72 85 Respiratory Rate 31 H Blood Pressure 142/76 H Pulse Oximetry 96 02/13/20 12:00 02/13/20 14:00 02/13/20 15:33 Temperature 37.2 C Pulse Rate 93 98 Respiratory Rate 31 H Blood Pressure 120/73 Pulse Oximetry 93 90 02/13/20 16:00 Temperature 37.2 C Pulse Rate 106 H Respiratory Rate 22 H Blood Pressure 146/64 H Pulse Oximetry 100 Exam Const: General: in distress and uncomfortable HENMT: Mouth: Yes moist mucous membranes Eyes: General: appearance normal, both eyes and all related structures Neck: Neck: supple and no JVD Resp: Auscultation: clear to auscultation bilaterally, no crackles, no rales, no rhonchi, no wheezes and diminished lung sounds Cardio: Rate: tachycardic Rhythm: regular rhythm
[2020-02-13 17:22] LABS: Magnesium 2.5 mg/dL (1.6-2.3)
[2020-02-13 18:14] LABS: Hepatitis B Surface Antigen Negative (Negative)
[2020-02-13 18:20] LABS: HAV RESULT Negative (Negative); Hepatitis B Core IgM Result Negative (Negative)
[2020-02-13 18:32] LABS: Hepatitis C Virus Antibody Negative (Negative)
[2020-02-14] VITALS (17 sets, daily range): BP systolic 110–149; BP diastolic 53–97; PULSE 77–101; RESP 17–40; TEMP 35.8–38.2; O2SAT 90–100
[2020-02-14 05:09] LABS: Basophils Percent Auto 0.2 % (0.2-1.2); Eosinophils Percent Auto 0.1 % (0-4.4); Hematocrit 39.8 % (42.0-52.0); Hemoglobin 13.1 g/dL (14.0-18.0); Immature Granulocyte Absolute 0.44 K/mm3 (0.00-0.031); Immature Granulocyte Percent A 2.7 % (0-0.5); Lymphocytes Absolute Auto 0.94 K/mm3 (0.9-3.2); Lymphocytes Percent Auto 5.7 % (18.3-44.2); Mean Corpuscular HGB Conc 32.9 g/dl (32-36); Mean Corpuscular Hemoglobin 27.6 pg (26-34); Mean Corpuscular Volume 83.8 fl (80-100); Mean Platelet Volume 9.9 fl (7.4-10.4); Monocytes Absolute Auto 0.5 K/mm3 (0.1-0.6); Monocytes Percent Auto 3.3 % (2.6-8.5); Neutrophils Absolute Auto 14.6 K/mm3 (1.3-6.7); Platelet Count Result 231 k/mm3 (150-375); Red Blood Count 4.75 M/mm3 (4.6-6.20); Red Cell Distribution Width 13.1 % (11.5-14.5); White Blood Count 16.6 K/mm3 (4.5-10.0)
[2020-02-14 05:17] LABS: Alanine Aminotransferase 41 U/L (4-50); Albumin Level 3.1 g/dL (3.5-5.1); Alkaline Phosphatase 108 U/L (38-126); Aspartate Amino Transferase 51 U/L (17-59); Bilirubin,Total 1.1 mg/dL (0.2-1.3); Blood Urea Nitrogen 18 mg/dL (9-20); Calcium 8.1 mg/dL (8.4-10.2); Carbon Dioxide 28 mmol/L (22-30); Chloride 101 mmol/L (98-107); Estimated CRCL calculation 103 ml/min; Estimated Glomerular Filt Rate > 60; Glucose 112 mg/dL (75-110); Magnesium 2.6 mg/dL (1.6-2.3); Potassium 3.8 mmol/L (3.4-5.0); Sodium 134 mmol/L (137-145)
--- NOTE | 2020-02-14 09:44 | PM.IMPN ---
Progress Note: A&P Assessment and Plan (1) COVID-19 virus detected: Code(s): U07.1 - COVID-19 Status: Acute Assessment and Plan: Supportive care Tocilizumab 400mg IV x 1 when Quantiferon TB Gold negative F/u imarkers of inflammatory cascade (2) Acute respiratory failure with hypoxia: Code(s): J96.01 - Acute respiratory failure with hypoxia Status: Acute Assessment and Plan: Due to COVID-19 pneumonia Continue supportive care High flow oxygen at 55 LPM Proning prn (3) Pneumonia: Qualifiers: Laterality: bilateral Lung location: unspecified part of lung Pneumonia type: due to unspecified organism Qualified Code(s): J18.9 - Pneumonia, unspecified organism Code(s): J18.9 - Pneumonia, unspecified organism Status: Acute Assessment and Plan: P.r.n. albuterol inhaler Continue ceftriaxone and doxycycline (was azithromycin) day 5 (4) Elevated BP without diagnosis of hypertension: Code(s): R03.0 - Elevated blood-pressure reading, without diagnosis of hypertension Status: Acute Assessment and Plan: PRN hydralazine. Subjective Date/time seen: 02/14/20 09:44 Interval history: Admitted 02/08 with cough, congesion, dyspnea. Found to be COVID-19 POSITIVE with pulmonary infiltrates. 02/13 SOB with any exertion. Denied pain, n/v, diarrhea, gu issues, bleeding. Review of Systems Review of Systems: All systems reviewed & are unremarkable except as noted in HPI and below Exam Narrative: Exam Narrative: HEENT: EOMI, PERRL, pharyngeal mucosa pink and intact NECK: No JVD, adenopathy, or thyromegaly CHEST: Slightly coarse BS, mildly tachypneic HEART: NL S1/S2, regular, no murmur ABDOMEN: BS+, soft, nontender, no mass, no bruits EXTREMITIES: No cyanosis, edema, or clubbing NEUROLOGIC: CN intact and symmetric to inspection. MUSCULOSKELETAL: Tone and strength symmetric. PSYCH: Alert. Oriented to person, place, and time. Objective Data Vital Signs Vital Signs: Vital Signs - 24 hr 02/13/20 10:00 02/13/20 12:00 02/13/20 14:00 Temperature 98.9 F Pulse Rate 85 93 98 Respiratory Rate 31 H Blood Pressure 120/73 Pulse Oximetry 93 04/17/20 15:33 02/13/20 16:00 02/13/20 18:00 Temperature 99 F Pulse Rate 106 H 112 H Respiratory Rate 22 H Blood Pressure 146/64 H Pulse Oximetry 90 100 02/13/20 20:00 02/13/20 20:32 02/13/20 22:00 Temperature 98.4 F Pulse Rate 85 99 Respiratory Rate 34 H 31 H Blood Pressure 117/67 142/104 H Pulse Oximetry 95 95 97 02/14/20 00:00 02/14/20 02:00 02/14/20 04:00 Temperature 100.1 F H 100.4 F H Pulse Rate 100 95 95 Respiratory Rate 17 32 H 23 H Blood Pressure 143/95 H 126/84 121/80 Pulse Oximetry 95 100 97 02/14/20 06:00 02/14/20 08:00 Temperature 100.6 F H Pulse Rate 99 97 Respiratory Rate 22 H 32 H Blood Pressure 130/79 128/76 Pulse Oximetry 93 93 Intake/Output Intake/Output: Intake & Output 02/11/20 02/12/20 02/13/20 02/14/20 23:59 23:59 23:59 23:59 Intake Total 1750 1130 1310 600 Output Total 1575 1350 1200 675 Balance 175 -220 110 -75 Meds/Results Medications: Active Medications Generic Name Dose Route Start Last Admin Trade Name Freq PRN Reason Stop Dose Admin Acetaminophen 1,000 mg 02/12/20 20:44 02/13/20 05:37 Tylenol Tablet PO 1,000 mg Q6H PRN Administration Mild Pain (1-3) or Fever Albuterol 2 puff 02/09/20 16:11 Proventil Hfa INHALATION QIDRT PRN Shortness Of Breath Enoxaparin Sodium 100 mg 02/12/20 09:00 02/13/20 09:53 Lovenox SUB-Q 100 mg DAILY NICHELLE Administration Hydralazine HCl 10 mg 02/09/20 16:09 02/09/20 21:28 Apresoline Hcl Inj IV PUSH 10 mg Q8H PRN Administration Blood Pressure - High Hydroxychloroquine Sulfate 200 mg 02/12/20 17:00 02/13/20 17:01 Plaquenil Tab PO 02/16/20 08:01 200 mg BIDWM NICHELLE Administration Ceftriaxone Sodium/Dextrose 1 gm in 50
[2020-02-14] MEDS: ENOXAPARIN 100 MG/ML SYRINGE SUB-Q (10:33)
[2020-02-14] MEDS: HYDROXYCHLOROQUINE SULFATE 200 MG TABLET PO ×2 (10:38→20:05)
[2020-02-14] MEDS: ACETAMINOPHEN 500 MG TABLET 1000 MG PO (10:38)
--- NOTE | 2020-02-14 12:13 | WPDCNINT ---
Assessment and Plan Assessment and plan (1) COVID-19 virus detected: Code(s): U07.1 - COVID-19 Status: Acute Assessment and Plan: He is febrile. Respiratory rate in 20s and early 30s. He is currently on high-flow oxygen as well as non-rebreather mask. LDH and ferritin has been significantly elevated. Hepatitis panel is negative. QuantiFERON gold test is still pending. He does not have any exposure to active TB patient in the past. I will give him Tocilizumab considering his significant respiratory compromise requiring high-flow oxygen, significant elevated inflammatory markers and clinical condition. Since he will be receiving 1-2 doses, risk for TB reactivation is low as compared to the benefits we can get because of his precarious clinical/respiratory compromise because of COVID19 pneumonia. He is at risk for intubation and mechanical ventilation. Continue Lovenox at therapeutic dose. Continue to monitor inflammatory markers including LDH, D-dimers, ferritin, procalcitonin and CRP. Continue to monitor his oxygenation status closely. Low threshold for intubation and placing him on mechanical ventilation if his respiratory status worsened. Continue Plaquenil for a total of 5 days. Continue awake proning and try to achieve 16-18 hours per day of proning if he is able to tolerate it. (2) Acute hypoxemic respiratory failure: Code(s): J96.01 - Acute respiratory failure with hypoxia Status: Acute Assessment and Plan: Continue high-flow oxygen and try to wean flow and FiO2 if tolerated. Will try to wean him down to a flow of 30-40 L range since he is not in a negative pressure room. Will try to wean him off non-rebreather mask and keep him on high-flow oxygen if he has ever tolerated. Continue to do awake proning and try to achieve 16 to 18 hours of prone Ng per day. Low threshold for intubation and placing him on mechanical ventilation. (3) Pneumonia: Qualifiers: Laterality: bilateral Lung location: unspecified part of lung Pneumonia type: due to unspecified organism Qualified Code(s): J18.9 - Pneumonia, unspecified organism Code(s): J18.9 - Pneumonia, unspecified organism Status: Acute Assessment and Plan: Continue ceftriaxone and doxycycline for a total of 7 days. Follow chest x-ray. Follow cultures. Send sputum culture if he is able to produce any. Additional Plan DVT prophylaxis with therapeutic dose of Lovenox Will keep him on clear liquid diet only because of his compromised respiratory status and may need intubation. critical care time more than 35 minutes Due to a high probability of clinically significant, life threatening deterioration, the patient required my highest level of preparedness to intervene emergently and I personally spent this critical care time directly and personally managing the patient. This critical care time included obtaining a history; examining the patient; pulse oximetry; ordering and review of studies; arranging urgent treatment with development of a management plan; evaluation of patient's response to treatment; frequent reassessment; and discussions with other providers. It was exclusive of separately billable procedures and treating other patients and teaching time. Please see Assessment and Plan section and the rest of the note for further information on patient assessment and treatment. Machine I Cutter Consult Note Consult date: 02/14/20 Time Seen: 09:14 HPI: Josette Nguyen is a 49 year old male with no significant past medical history who was admitted to the hospital on 08 February with fever chill cough and shortness of breath. Symptoms started with flu-like symptoms. He had some subjective fever but did not check his temperature. He had some associated chills. He also mentioned to have nausea. He took Tamiflu but did not work for him and he continued to hardin
[2020-02-15] VITALS (12 sets, daily range): BP systolic 80–136; BP diastolic 51–90; PULSE 88–136; RESP 20–46; TEMP 35.9–36.9; O2SAT 50–100
[2020-02-15 04:27] LABS: Alveolar/Arterial O2 Gradient 599.3 mmHg; Base Excess ABG -20.2 mEq/l (+/-2.0); Fractional Inspired Oxygen 100 %; HCO3 ABG 13.4 mEq/l (22.0-26.0); Oxygen Content ABG 10.9 %vol (16.0-22.0); Oxyhemoglobin 49.9 % THb (90.0-100.0); PO2 FiO2 Ratio Arterial Blood 0.47 %; Total Hemoglobin 15.5 g/dL (12.0-18.0)
[2020-02-15 04:29] LABS: PO2 ABG 46.7 mmHg (80.0-100.0); pH ABG 6.918 (7.350-7.450)
[2020-02-15 04:30] LABS: Device VENTILATOR; Oxygen Saturation ABG 55.2 % (95.0-100.0); Site Drawn ARTLINE
[2020-02-15] MEDS: SODIUM BICARBONATE 8.4% 50 MEQ/50 ML VIAL 100 MEQ IV PUSH ×2 (04:30→06:09)
[2020-02-15 04:31] LABS: Arterial Blood Gas PEEP 20 cmH2O; Arterial Blood Gas Tidal Volume 350 ml; Arterial Blood Gas Vent Mode CMV; Arterial Blood Gas Ventilator rate 20 /MIN
[2020-02-15] MEDS: NOREPINEPHRINE 8 MG/D5W 250 ML 8 MG/250 ML BAG 56.3 MG IV CONT ×3 (04:45→13:39)
[2020-02-15] MEDS: SODIUM CHLORIDE 0.9% IV 1,000 ML 999 ML IV CONT (04:58)
[2020-02-15 05:20] LABS: Alveolar/Arterial O2 Gradient 603.2 mmHg; Base Excess ABG -15.4 mEq/l (+/-2.0); Fractional Inspired Oxygen 100 %; HCO3 ABG 16.3 mEq/l (22.0-26.0); Oxygen Content ABG 4.8 %vol (16.0-22.0); Oxyhemoglobin 24.4 % THb (90.0-100.0); PO2 FiO2 Ratio Arterial Blood 0.44 %; Total Hemoglobin 13.7 g/dL (12.0-18.0)
[2020-02-15] MEDS: VASOPRESSIN INJ 100 UNITS in DEXTROSE 5% 95 ML IV CONT (05:24)
[2020-02-15 05:51] LABS: Hematocrit 41.4 % (42.0-52.0); Hemoglobin 12.9 g/dL (14.0-18.0); Mean Corpuscular HGB Conc 31.2 g/dl (32-36); Mean Corpuscular Hemoglobin 28.4 pg (26-34); Mean Corpuscular Volume 91.2 fl (80-100); Mean Platelet Volume 9.9 fl (7.4-10.4); Platelet Count Result 218 k/mm3 (150-375); Red Blood Count 4.54 M/mm3 (4.6-6.20); Red Cell Distribution Width 13.6 % (11.5-14.5)
[2020-02-15 05:53] LABS: PCO2 ABG 65.3 mmHg (35.0-45.0); pH ABG 7.014 (7.350-7.450)
[2020-02-15 05:54] LABS: Device VENTILATOR; Oxygen Saturation ABG 58.1 % (95.0-100.0); PO2 ABG 44.5 mmHg (80.0-100.0); Site Drawn LEFT BRACHIAL
[2020-02-15 05:55] LABS: Arterial Blood Gas PEEP 20 cmH2O; Arterial Blood Gas Vent Mode CMV; Arterial Blood Gas Ventilator rate 20 /MIN
[2020-02-15 05:56] LABS: Arterial Blood Gas Tidal Volume 350 ml
[2020-02-15 06:07] LABS: Band Neutrophils Percent 6 % (0-6); Large Platelets Present; Monocytes Percent Manual 2 % (3-9); Neutrophils Percent Manual 86 % (46-73); Platelet Estimate Adequate (Adequate); Total Cells Counted 100
--- NOTE | 2020-02-15 06:11 | P.PCNBED_ITS ---
Procedures Central Line Placement: Left SC: Discussed w/ patient and/or surrogate, the non-emergent placement of a central venous catheter, including its clinical necessity/indication & associated potential risks & complications.: No The patient and/or surrogate understand(s) and acknowledge(s) the need to proceed with central venous catheter insertion as an important element of the patient's clinical management.: No Emergently Placed - (Given emergent patient conditions, temporal constraints may not have permitted and aforementioned informed consent.): Yes Central Line Date: 02/15/20 Central Line Time: 03:50 Pre-procedural Time-Out was completed immediately before starting the procedure and confirmed: Patient Identification, Site, Procedure, Patient Position and the Availability of Requisite Equipment.: Yes Patient Position: supine Patient placed on monitor/pulse ox: Yes Provider Prep: mask, sterile gloves and emergent ? sterile barriers not used Central line prep: Chlorhexidine scrub Local anesthesia used: lidocaine 1% Amount of anesthesia used (ml): 5 Ultrasound used for placement: No Central line lumen inserted: triple [place]: 7 Length (cm): 15 Depth of Insertion (cm): 15 Post procedure: sutured in place, good blood return, all ports aspirated, flushed, capped, tegaderm and hemostatic disc Post procedure x-ray: tip of catheter in good position Additional comments: The patient central line was placed following a code. The patient was intubated and requiring high PEEP and FiO2. However his PEEP was dropped to a peep of 5 for less than 2 minutes while needle was being guided under the clavicle. There was no loss of suction while the needle was being advanced and there was immediate return of venous blood. Chest x-ray ribs reviewed in central line was appropriately positioned. High did not appreciated pneumothorax but official radiologic interpretation is pending
[2020-02-15 06:14] LABS: Alanine Aminotransferase 54 U/L (4-50); Albumin Level 2.8 g/dL (3.5-5.1); Alkaline Phosphatase 130 U/L (38-126); Aspartate Amino Transferase 99 U/L (17-59); Bilirubin,Total 0.8 mg/dL (0.2-1.3); Blood Urea Nitrogen 23 mg/dL (9-20); Calcium 7.3 mg/dL (8.4-10.2); Carbon Dioxide 21 mmol/L (22-30); Chloride 101 mmol/L (98-107); Estimated CRCL calculation 60 ml/min; Estimated Glomerular Filt Rate 56; Glucose 150 mg/dL (75-110); Potassium 4.1 mmol/L (3.4-5.0); Sodium 140 mmol/L (137-145)
--- NOTE | 2020-02-15 06:23 | WPDPROCEDUR ---
Procedures Intubation: Intubation Date: 02/15/20 Intubation Time: 03:18 A pre-procedural Time-Out was completed immediately before starting the procedure and confirmed: Patient Identification, Site, Procedure, Patient Position and the Availability of Requisite Equipment: Yes Sedative: etomidate Mg given: 30 Paralytic: succinylcholine Mg given: 30 Laryngoscope: fiber optic video scope ET tube size: cuffed Tube secured depth (cm): 27 Tube secured location: lips Tube placement confirmation: visualized tube passing through cords, equal breath sounds bilaterally, no breath sounds over epigastrium and confirmation by capnometry Patient tolerated procedure: other (Patient went into PEA following intubation ) Intubation complications: hypoxia Additional comments: The patient's condition decompensated rapidly. His intubation was delayed due to lack of IV access/unable to provide sedation. And IO was placed in the right tibia and sedation was provided. The patient was intubated with a size 3 glide scope and a 7.5 ET tube. Then the patient was complicated by the fact that the patient at was hypoxic and we were unable to obtain accurate pulse oximetry due to the patient's diaphoresis/condition. The patient was already hypoxic pre intubation pre oxygenation was attempted with a PEEP valve at 20 with bag-valve with unable to even obtain a pulse ox reading. The patient was subsequently rapidly intubated. With intubation the patient had an immediate color change on end-tidal CO2, vapor within the tube, equal but coarse breath sounds, equal chest expansion. The patient was easy to ventilate but were still unable to obtain accurate pulse oximetry. While auscultation of the chest was performed if note the patient then not heart sounds. Patient's inside sales advertising executive demonstrated PEA and a code was called. Chest x-ray was performed which demonstrated ET tube foreign after 5 cm above the anselmo. ET tube was advanced 1-2 cm. Radiologic interpretation was pending at the time of this documentation.
--- NOTE | 2020-02-15 06:35 | P.RRN_ITS ---
Critical Care Event Note Summary Code activated: Yes Narrative: I had been in another patient's room as I exited the patient's room nursing staff had noted that the patient's oxygen saturations had suddenly dropped at around 3:00 a.m. The patient had been self proning in bed. When arrived at the bedside the patient was diaphoretic, cold and clammy, with maximal work of breathing and accessory muscle use. Unfortunately the patient's restless movements had dislodged his IV. We were unable to obtain accurate pulse ox due to patient's diaphoresis and cool extremities. In IO was requested however had be sent up from the ER. IO was placed around 03:15. And RSI medications were given and the patient was intubated at 3:18 a.m. we were unable to obtain accurate pulse oximetry immediately prior to intubation and following intubation. ET tube was in appropriate position in the patient was easy to bag. All auscultating the chest it was noted patient did not have heart sounds. Patient was in PEA on telemetry but there was no pulse palpable. Subsequently a code was called at 3:33 a.m. the patient received 1 round of CPR 1 dose of epinephrine and had return of perfusing circulation at 03:36. Patient was placed on a ventilator with a tidal volume of 350 rate of 20 peep of 20 and 100% FiO2. Respiratory therapy tried to obtain an ABG while I placed central line. During the central line placement patient began to cough against the vent and was gagging and was over breathing the vent. The patient was given sedation with fentanyl and Versed. Respiratory therapy was unable to obtain a ABG and subsequently I attempted to place a femoral art line without success. I was able to obtain a venous specimen that was sent for analysis. PH 6.9 pCO2 67 PO2 46 bicarb of 13. Shortly after placement of central line the patient developed hypotension. Levophed was ordered and a normal saline bolus was ordered. while I was still in the room evaluating the patient the patient's Levophed had been maxed out and vasopressin was added. Stat labs were ordered including CBC CMP and lactic acid. Dante-Synephrine was also ordered in anticipation of patient needing further pressor support. However the patient did briefly stabilized with his blood pressure with Levophed and vasopressin. Nursing staff placed a OG, Putnam catheter with temperature probing a contacted the motors and controls tester and updated him to the patient's clinical condition. After further discussion the patient's tidal volume was increased to 450 given the patient's elevated pCO2. Remainder of the patient's labs were still pending. I then went and updated the patient's mother and fiancee regarding his clinical condition. His clinical course was discussed with them including his guarded prognosis and critical condition. An exception was made to the visiting policy and the family was allowed to spend some time with the patient. During the course of this documentation and went to re-evaluate the patient and nursing staff notified me that he was maxed out on Levophed and vasopressin and that Dante-Synephrine was initiated. Patient's care has been turned over to the motors and controls tester at the end of my shift. The patient's condition is critical and prognosis is guarded. This case had a high probability of a clinically significant, sudden, or life threatening deterioration of this patient's condition which required my full and direct attention, intervention and personal management. Critical care time excludes time spent in procedures. Critical care time: 135 - 164 mins
[2020-02-15 06:40] LABS: Lactic Acid Reflex 12.3 mmol/L (0.7-2.1)
[2020-02-15 06:43] LABS: INR 1.7; Partial Thromboplastin Time 28.3 SECONDS (22.3-36.8); Prothrombin Time 19.1 Seconds (11.1-14.7)
[2020-02-15 07:09] LABS: Lactate Dehydrogenase 2769 U/L (313-618)
[2020-02-15 07:14] LABS: CRP 32.5 mg/dL (<1.0)
--- NOTE | 2020-02-15 08:00 | ECG_ITS ---
Measurements Intervals [place] Rate: 123 P: 57 CA: 136 QRS: -3 QRSD: 110 T: 17 QT: 373 QTc: 536 Interpretive Statements SINUS TACHYCARDIA INTRAVENTRICULAR CONDUCTION DELAY DELAYED PRECORDIAL R/S TRANSITION BORDERLINE ST-T WAVE ABNORMALITY- INF/LAT LEADS ABNORMAL ECG Electronically Signed On 02-15-2020 15:03:25 CDT by Sam Ray D.O.
[2020-02-15 08:01] LABS: Alveolar/Arterial O2 Gradient 611.2 mmHg; Base Excess ABG -9.4 mEq/l (+/-2.0); Fractional Inspired Oxygen 100 %; HCO3 ABG 19.7 mEq/l (22.0-26.0); Oxygen Content ABG 13.2 %vol (16.0-22.0); Oxyhemoglobin 66.1 % THb (90.0-100.0); PCO2 ABG 55.9 mmHg (35.0-45.0); PO2 FiO2 Ratio Arterial Blood 0.46 %; Total Hemoglobin 14.2 g/dL (12.0-18.0)
[2020-02-15 08:07] LABS: Oxygen Saturation ABG 69.6 % (95.0-100.0); PO2 ABG 45.9 mmHg (80.0-100.0); pH ABG 7.164 (7.350-7.450)
[2020-02-15 08:09] LABS: Device VENTILATOR; Site Drawn ARTLINE
[2020-02-15 08:10] LABS: Arterial Blood Gas PEEP 20 cmH2O; Arterial Blood Gas Tidal Volume 450 ml; Arterial Blood Gas Vent Mode CMV; Arterial Blood Gas Ventilator rate 20 /MIN
[2020-02-15] MEDS: ENOXAPARIN 100 MG/ML SYRINGE SUB-Q (08:24)
[2020-02-15 08:48] LABS: Ferritin > 2000.00 ng/mL (11.1-264); Reflex Lactic Acid Yes or No Add Lactic
--- NOTE | 2020-02-15 09:55 | PM.IMPN ---
Progress Note: A&P Assessment and Plan (1) Acute respiratory failure with hypoxia: Code(s): J96.01 - Acute respiratory failure with hypoxia Status: Acute Assessment and Plan: Due to COVID-19 pneumonia Continue to support on vent Would likely benefit from ECMO Proning prn Transfer to tertiary center (2) COVID-19 virus detected: Code(s): U07.1 - COVID-19 Status: Acute Assessment and Plan: Supportive care Tocilizumab 400mg IV x 1 given 02/13 F/u imarkers of inflammatory cascade (3) Pneumonia: Qualifiers: Laterality: bilateral Lung location: unspecified part of lung Pneumonia type: due to unspecified organism Qualified Code(s): J18.9 - Pneumonia, unspecified organism Code(s): J18.9 - Pneumonia, unspecified organism Status: Acute Assessment and Plan: P.r.n. albuterol inhaler Continue ceftriaxone and doxycycline (was azithromycin) day 6, Vancomycin day 1 (4) Elevated BP without diagnosis of hypertension: Code(s): R03.0 - Elevated blood-pressure reading, without diagnosis of hypertension Status: Acute Assessment and Plan: Now requiring pressors due to sepsis (5) Sepsis: Qualifiers: Sepsis type: sepsis due to unspecified organism Sepsis acute organ dysfunction status: with acute organ dysfunction Severe sepsis acute organ dysfunction type: acute respiratory failure Acute respiratory failure type: with hypoxia Severe sepsis shock status: with septic shock Qualified Code(s): A41.9 - Sepsis, unspecified organism; R65.21 - Severe sepsis with septic shock; J96.01 - Acute respiratory failure with hypoxia Code(s): A41.9 - Sepsis, unspecified organism Status: Acute Assessment and Plan: Pressors, fluids, antibiotics Ventilator support Subjective Date/time seen: 02/15/20 09:55 Interval history: Admitted 02/08 with cough, congesion, dyspnea. Found to be COVID-19 POSITIVE with pulmonary infiltrates. 02/14 Early AM decompensated with hypoxia and hypotension. Intubated by stock clerk. Central line placed for IVF, pressors. Review of Systems Review of Systems: ROS unobtainable: Yes unobtainable due to medical condition Exam Narrative: Exam Narrative: GENERAL: Sedated and resting comfortably PSYCH: Sedated and ventilated Objective Data Vital Signs Vital Signs: Vital Signs - 24 hr 02/14/20 10:00 02/14/20 10:38 02/14/20 11:58 Temperature 100.8 F H 100.4 F H Pulse Rate 101 H Respiratory Rate 30 H Blood Pressure 136/81 Pulse Oximetry 91 92 02/14/20 11:59 02/14/20 12:00 02/14/20 14:00 Temperature 100.4 F H Pulse Rate 100 100 84 Respiratory Rate 32 H 30 H Blood Pressure 131/92 H 122/87 Pulse Oximetry 94 90 02/14/20 14:40 02/14/20 16:00 02/14/20 18:00 Temperature 98.7 F Pulse Rate 80 86 Respiratory Rate 40 H 28 H Blood Pressure 110/53 L 149/96 H Pulse Oximetry 90 97 97 02/14/20 20:00 02/14/20 20:53 02/14/20 22:00 Temperature 96.4 F L Pulse Rate 78 86 Respiratory Rate 33 H 33 H Blood Pressure 141/97 H 140/83 Pulse Oximetry 99 94 99 02/15/20 00:00 02/15/20 02:00 02/15/20 04:00 Temperature 97.5 F L Pulse Rate 88 92 122 H Respiratory Rate 37 H 46 H Blood Pressure 135/90 136/86 Pulse Oximetry 88 L 91 02/15/20 04:15 02/15/20 06:00 02/15/20 08:00 Temperature 96.8 F L 96.6 F L Pulse Rate 123 H 116 H 123 H Respiratory Rate 39 H 27 H 28 H Blood Pressure 86/56 L 80/51 L 108/59 L Pulse Oximetry 57 L 50 L 63 L Intake/Output Intake/Output: Intake & Output 02/12/20 02/13/20 02/14/20 02/15/20 23:59 23:59 23:59 23:59 Intake Total 1130 1310 1430 1520 Output Total 1350 1200 1625 200 Balance -220 110 -195 1320 Meds/Results Medications: Active Medications Generic Name Dose Route Start Last Admin Trade Name Freq PRN Reason Stop Dose Admin Acetaminophen 1,000 mg 02/12/20 20:44 02/14/20 10:38 Tylenol Tablet PO 1,000 mg Q
[2020-02-15 10:07] LABS: Lactic Acid 5.3 mmol/L (0.7-2.1)
[2020-02-15 10:54] LABS: Alveolar/Arterial O2 Gradient 414.7 mmHg; Base Excess ABG -6.6 mEq/l (+/-2.0); Carboxyhemoglobin 0.1 % THb (0-2.0); Fractional Inspired Oxygen 100 %; HCO3 ABG 29.7 mEq/l (22.0-26.0); Methemoglobin ABG 0.7 %THb (0-1.5); Oxygen Content ABG 19.1 %vol (16.0-22.0); Oxygen Saturation ABG 97.1 % (95.0-100.0); Oxyhemoglobin 95.8 % THb (90.0-100.0); PO2 ABG 152.7 mmHg (80.0-100.0); PO2 FiO2 Ratio Arterial Blood 1.53 %; Reduced Hemoglobin 3.4 %THb (0-5.0)
[2020-02-15 10:56] LABS: Arterial Blood Gas Ventilator rate 20 /MIN; Device VENTILATOR; PCO2 ABG 145.6 mmHg (35.0-45.0); Site Drawn ARTLINE; pH ABG 6.927 (7.350-7.450)
[2020-02-15 10:57] LABS: Arterial Blood Gas PEEP 20 cmH2O; Arterial Blood Gas Tidal Volume 450 ml; Arterial Blood Gas Vent Mode CMV
[2020-02-15] MEDS: EPOPROSTENOL SODIUM 0.5 MG VIAL 0.125 MG INHALATION (11:00)
[2020-02-15] MEDS: HYDROCORTISONE SODIUM SUCCINATE 100 MG/2 ML VIAL IV PUSH ×2 (11:13→15:58)
[2020-02-15 12:42] LABS: Base Excess ABG -2.6 mEq/l (+/-2.0); Carboxyhemoglobin 0.2 % THb (0-2.0); Fractional Inspired Oxygen 100 %; HCO3 ABG 26.1 mEq/l (22.0-26.0); Methemoglobin ABG 0.5 %THb (0-1.5); Oxygen Content ABG 19.3 %vol (16.0-22.0); Oxygen Saturation ABG 99.2 % (95.0-100.0); Oxyhemoglobin 97.8 % THb (90.0-100.0); PO2 ABG 202.5 mmHg (80.0-100.0); PO2 FiO2 Ratio Arterial Blood 2.03 %; Reduced Hemoglobin 1.5 %THb (0-5.0); Total Hemoglobin 13.7 g/dL (12.0-18.0)
[2020-02-15 12:43] LABS: PCO2 ABG 62.5 mmHg (35.0-45.0); Site Drawn ARTLINE; pH ABG 7.238 (7.350-7.450)
[2020-02-15 12:44] LABS: Arterial Blood Gas Vent Mode CMV; Arterial Blood Gas Ventilator rate 32 /MIN; Device VENTILATOR; Peak Inspiratory Pressure 0 cmH2O
[2020-02-15 12:45] LABS: Arterial Blood Gas Minute Volume 0 LPM; Arterial Blood Gas PEEP 16 cmH2O; Arterial Blood Gas Pressure Support 0 cmH2O; Arterial Blood Gas Tidal Volume 500 ml
[2020-02-15] MEDS: SODIUM CHLORIDE 0.9% IV 500 ML 999 ML IV CONT (13:03)
--- NOTE | 2020-02-15 13:07 | WPDINTPN ---
Progress Note: A&P Assessment and Plan (1) COVID-19 virus detected: Code(s): U07.1 - COVID-19 Status: Acute Assessment and Plan: He was on high-flow oxygen but had to be intubated on 02/12 because of significant hypoxia and respiratory distress. Continue mechanical ventilation at current settings. Follow ABG and chest x-ray. Low tidal volume strategies will be employed. Aim for a PEEP of 12-14. He is paralyzed with Nimbex. He is currently on Flolan for persistent hypoxia. He has been proned and will continue it for 16 hours a day. Skin precaution will be employed. Hepatitis panel is negative. QuantiFERON gold test is still pending. He does not have any exposure to active TB patient in the past. He was given Tocilizumab on 02/12 considering his significant respiratory compromise requiring high-flow oxygen, significant elevated inflammatory markers and clinical condition. Since he will be receiving 1-2 doses, risk for TB reactivation is low as compared to the benefits we can get because of his precarious clinical/respiratory compromise because of COVID19 pneumonia. Continue Lovenox at therapeutic dose. Continue to monitor inflammatory markers including LDH, D-dimers, ferritin, procalcitonin and CRP. Continue Plaquenil for a total of 5 days. (2) Acute hypoxemic respiratory failure: Code(s): J96.01 - Acute respiratory failure with hypoxia Status: Acute Assessment and Plan: As above (3) Pneumonia: Qualifiers: Laterality: bilateral Lung location: unspecified part of lung Pneumonia type: due to unspecified organism Qualified Code(s): J18.9 - Pneumonia, unspecified organism Code(s): J18.9 - Pneumonia, unspecified organism Status: Acute Assessment and Plan: Continue ceftriaxone and doxycycline for now. Vancomycin has been added. Follow chest x-ray. Follow cultures. Sputum culture will be sent today. (4) Shock: Code(s): R57.9 - Shock, unspecified Status: Acute Assessment and Plan: Seems septic shock in nature. He is currently requiring Levophed, vasopressin and Dante-Synephrine. Wean pressor if tolerated. Fluid resuscitation judiciously to keep him euvolemic. Continue broad-spectrum antibiotics . He has been started on steroids with hydrocortisone at stress doses. (5) NIMISHA (acute kidney injury): Code(s): N17.9 - Acute kidney failure, unspecified Status: Acute Assessment and Plan: Continue to monitor intake Output record and renal parameters. (6) Lactic acidosis: Code(s): E87.2 - Acidosis Status: Acute Assessment and Plan: Lactic acid is trending down. Likely as a result of hypoperfusion because of respiratory and hemodynamics compromise. Continue to trend lactic acid Until it resolves. He has received 2 amps of bicarbonate yesterday for significant anion gap metabolic acidosis when he was decompensate Ng. Additional Plan DVT prophylaxis with therapeutic dose of Lovenox NPO Because of hemodynamic and respiratory compromise Family was updated last night. Will call the family and update them. He is critically sick. I have called [facility] transfer center for consideration of ECMO. He has accepted but because of his unstable hemodynamics he is not safe for transfer. Once his hemodynamics and respiratory status is reasonable stable where he can be transferred safely then he will be transferred. [facility] transfer center will be updated frequently. critical care time more than 35 minutes Due to a high probability of clinically significant, life threatening deterioration, the patient required my highest level of preparedness to intervene emergently and I personally spent this critical care time directly and personally managing the patient. This critical care time included
[2020-02-15 13:09] LABS: Hematocrit 40.7 % (42.0-52.0); Hemoglobin 12.8 g/dL (14.0-18.0); Mean Corpuscular HGB Conc 31.4 g/dl (32-36); Mean Corpuscular Hemoglobin 27.9 pg (26-34); Mean Corpuscular Volume 88.7 fl (80-100); Mean Platelet Volume 9.7 fl (7.4-10.4); Platelet Count Result 178 k/mm3 (150-375); Red Blood Count 4.59 M/mm3 (4.6-6.20); White Blood Count 39.8 K/mm3 (4.5-10.0)
[2020-02-15 13:17] LABS: Band Neutrophils Percent 8 % (0-6); Lymphocytes Absolute Manual 0.79 K/mm3 (1.1-4.5); Neutrophils Percent Manual 90 % (46-73); Platelet Estimate Adequate (Adequate); Total Cells Counted 100
[2020-02-15 13:21] LABS: Lactic Acid 3.1 mmol/L (0.7-2.1)
[2020-02-15 13:24] LABS: Alanine Aminotransferase 91 U/L (4-50); Albumin Level 2.7 g/dL (3.5-5.1); Alkaline Phosphatase 152 U/L (38-126); Aspartate Amino Transferase 137 U/L (17-59); Bilirubin,Total 0.7 mg/dL (0.2-1.3); Blood Urea Nitrogen 36 mg/dL (9-20); Calcium 6.6 mg/dL (8.4-10.2); Carbon Dioxide 32 mmol/L (22-30); Chloride 92 mmol/L (98-107); Estimated CRCL calculation 56 ml/min; Estimated Glomerular Filt Rate 52; Glucose 399 mg/dL (75-110); Magnesium 2.8 mg/dL (1.6-2.3); Phosphorus 8.7 mg/dL (2.5-4.5); Sodium 131 mmol/L (137-145)
--- NOTE | 2020-02-15 13:31 | WPDPROCEDUR ---
Procedures Arterial Line: Arterial Line Date: 02/15/20 Arterial Line Time: 07:32 Perfomed Emergently - Given emergent patient conditions, temporal constraints may have precluded informed consent: Yes A pre-procedural Time-Out was completed immediately before starting the procedure and confirmed: Patient Identification, Site, Procedure, Patient Position and the Availability of Requisite Equipment: Yes Patient Position: supine Electrical Supervisor Prep: sterile gown, sterile gloves, mask and hat Site: right and femoral Site Prep: chlorhexidine Skin Anesthesia: 1% lidocaine Technique used: guide wire technique Size (Gauge): 16 Length: 12 cm Closure/Dressing: suture Patient tolerated procedure: well Complications: none
[2020-02-15 15:08] LABS: Alveolar/Arterial O2 Gradient 429.9 mmHg; Base Excess ABG -0.9 mEq/l (+/-2.0); Fractional Inspired Oxygen 80 %; HCO3 ABG 26.6 mEq/l (22.0-26.0); Methemoglobin ABG 0.4 %THb (0-1.5); Oxygen Content ABG 17.5 %vol (16.0-22.0); Oxygen Saturation ABG 94.6 % (95.0-100.0); Oxyhemoglobin 93.4 % THb (90.0-100.0); PCO2 ABG 56.5 mmHg (35.0-45.0); PO2 ABG 81.2 mmHg (80.0-100.0); PO2 FiO2 Ratio Arterial Blood 1.01 %; Reduced Hemoglobin 6.2 %THb (0-5.0); Total Hemoglobin 13.3 g/dL (12.0-18.0); pH ABG 7.291 (7.350-7.450)
[2020-02-15 15:09] LABS: Arterial Blood Gas Minute Volume 0 LPM; Arterial Blood Gas PEEP 14 cmH2O; Arterial Blood Gas Pressure Support 0 cmH2O; Arterial Blood Gas Tidal Volume 500 ml; Arterial Blood Gas Vent Mode CMV; Arterial Blood Gas Ventilator rate 32 /MIN; Device VENTILATOR; Peak Inspiratory Pressure 0 cmH2O; Site Drawn ARTLINE
--- NOTE | 2020-02-15 15:49 | PM.TDS ---
Transfer Discharge Sum: Prov Provider Date of admission: 02/09/20 13:58 Primary care physician: UNKNOWN,DOCTOR Admitting clinician: Kiya Ding MD Consults: 02/13/20 Consult to Physician Routine Comment: dr. corea has been notified Consulting Provider: Loren Corea skin grader/MD group to consult: Dr. Espino Reason for consultation: Covid-19 appear to be getting worse Has provider been notified: Yes 02/14/20 Consult to Physician Routine Comment: Consulting Provider: Saurabh Kirkpatrick skin grader/MD group to consult: ICU MD Reason for consultation: Increasing SOB/Oxygen needs Has provider been notified: Yes DS: Diagnosis Admitting Diagnosis Admitting Diagnosis: Acute respiratory failure with hypoxia Discharge Diagnosis (1) Acute respiratory failure with hypoxia: Code(s): J96.01 - Acute respiratory failure with hypoxia Status: Acute Assessment and Plan: Due to COVID-19 pneumonia Continue to support on vent Would likely benefit from ECMO Proning prn Transfer to tertiary center (2) COVID-19 virus detected: Code(s): U07.1 - COVID-19 Status: Acute Assessment and Plan: Supportive care Tocilizumab 400mg IV x 1 given 02/13 F/u imarkers of inflammatory cascade (3) Pneumonia: Qualifiers: Laterality: bilateral Lung location: unspecified part of lung Pneumonia type: due to unspecified organism Qualified Code(s): J18.9 - Pneumonia, unspecified organism Code(s): J18.9 - Pneumonia, unspecified organism Status: Acute Assessment and Plan: P.r.n. albuterol inhaler Continue ceftriaxone and doxycycline (was azithromycin) day 6, Vancomycin day 1 (4) Elevated BP without diagnosis of hypertension: Code(s): R03.0 - Elevated blood-pressure reading, without diagnosis of hypertension Status: Acute Assessment and Plan: Now requiring pressors due to sepsis (5) Sepsis: Qualifiers: Sepsis type: sepsis due to unspecified organism Sepsis acute organ dysfunction status: with acute organ dysfunction Severe sepsis acute organ dysfunction type: acute respiratory failure Acute respiratory failure type: with hypoxia Severe sepsis shock status: with septic shock Qualified Code(s): A41.9 - Sepsis, unspecified organism; R65.21 - Severe sepsis with septic shock; J96.01 - Acute respiratory failure with hypoxia Code(s): A41.9 - Sepsis, unspecified organism Status: Acute Assessment and Plan: Pressors, fluids, antibiotics Ventilator support Transfer Discharge Sum: Med Medications Active and Home Medications: Home Medications No Home Medications 02/10/20 [History Confirmed 02/10/20] Active Medications Acetaminophen (Tylenol Elixir) 1,000 mg FEED TUBE Q6H PRN PRN Reason: Mild Pain (1-3) or Fever Albuterol (Proventil Hfa) 2 puff INHALATION QIDRT PRN PRN Reason: Shortness Of Breath Enoxaparin Sodium (Lovenox) 100 mg SUB-Q DAILY [facility] Last Admin: 02/15/20 08:24 Dose: 100 mg Documented by: Epoprostenol Sodium (Flolan) 0.125 mg INHALATION PRN PRN PRN Reason: Titrate Last Admin: 02/15/20 11:00 Dose: 0.125 mg Documented by: Epoprostenol Sodium (Flolan) 0.25 mg INHALATION PRN PRN PRN Reason: Titrate Epoprostenol Sodium (Flolan) 0.5 mg INHALATION PRN PRN PRN Reason: Titrate Epoprostenol Sodium (Flolan) 1 mg INHALATION PRN PRN PRN Reason: Titrate Hydrocortisone Sodium Succinate (Solu-Cortef) 100 mg IV PUSH Q8HR [facility] Last Admin: 02/15/20 11:13 Dose: 100 mg Documented by: Hydroxychloroquine Sulfate (Plaquenil Suspension) 200 mg FEED TUBE BIDWM [facility] Stop: 02/16/20 08:01 Ceftriaxone Sodium/Dextrose (Rocephin 1 Gm/D5w 50 Ml) 1 gm in 50 mls @ 100 mls/hr IVPB Q24H [facility] Last Infusion: 02/15/20 12:53 Dose: Infused Documented by: Doxycycline Hyclate 100 mg/ (Dextrose) 100 mls @ 100 mls/hr IVPB Q12HR [facility] Last Infusion: 02/15/20 09:25 Dose: Infused Documented by:
[2020-02-15 21:26] LABS: NIL 0.01 IU/mL; Quantiferon TB Plus, 1T INDETERMINATE (NEGATIVE)
[2020-02-16 11:11] LABS: D Dimer > 20.00 ug/mL (<0.48)
[2020-02-17 15:02] LABS: Procalcitonin 2.15 ng/mL (<0.10)
== END 2020-02-15 16:45 | disposition short-term general hospital (02) | DRG 137 ==
LOC: ANHED 14:05 → ANHICU 15:43
PROVIDERS: Family Medicine; Internal Medicine; Internal Medicine Critical Care Medicine; Nurse Practitioner; Admitting Provider Hospitalist; Emergency Provider Emergency Medicine; Visit Provider Internal Medicine
DX: U07.1 COVID-19 (principal); J12.89 Other viral pneumonia; J96.01 Acute respiratory failure with hypoxia; J96.02 Acute respiratory failure with hypercapnia; R03.0 Elevated blood-pressure reading, without diagnosis of hypertension; A41.89 Other specified sepsis; R65.21 Severe sepsis with septic shock; N17.9 Acute kidney failure, unspecified; E87.2 Acidosis
CPT/HCPCS: 31500; 36415; 36600; 71045; 71275; 80053; 80074; 82375; 82728; 82805; 83050; 83605; 83615; 83735; 83880; 84100; 84145; 84443; 84484; 85025; 85380; 85610; 85730; 86140; 86480; 87040; 87086; 87635; 87804; 92950; 93005; 93970; 94002; 94667; 96365; 96367; 96375; 99291; A9270; C1751; J0131; J0171; J0330; J0360; J0456; J0696; J1650; J1720; J2250; J2370; J2405; J3010; J3262; J3370; J7030; J7040; J7060; Q9967; U0002